=== PATIENT | female | born 1995 | race Caucasian/White ===

== ENCOUNTER 2024-08-24 14:41 | Outpatient (REF) | payer OTHER, SELFPAY ==
[2024-08-24 16:24] LABS: MANUAL DIFF FLAG NO
[2024-08-24 16:59] LABS: Basophils Percent Auto 0.4 % (0-2); Eosinophils Absolute Auto 0.2 X10*3/uL (0.0-0.4); Eosinophils Percent Auto 2.8 % (0-4); Hematocrit 40.7 % (37.0-47.0); Hemoglobin 13.8 g/dl (12.0-16.0); Imm Gran Abs Auto 0.02 X10*3/uL (0.00-0.03); Imm Gran Pct Auto 0.2 % (0.0-0.4); Lymphocytes Absolute Auto 2.5 X10*3/uL (1.2-4.9); Lymphocytes Percent Auto 30.5 % (20-40); Mean Corpuscular HGB Conc 33.9 g/dl (31.0-35.0); Mean Corpuscular Hemoglobin 28.8 pg (27.0-33.0); Mean Platelet Volume 9.9 fL (9.4-12.3); Monocytes Absolute Auto 0.6 X10*3/uL (0.1-1.2); Monocytes Percent Auto 7.3 % (2-11); Neutrophils Absolute Auto 4.9 x10*3/uL (2.0-8.3); Neutrophils Percent Auto 58.8 % (45-73); Platelet Count 233 X10*3/uL (160-400); Red Blood Count 4.79 X10*6/uL (4.20-5.50); White Blood Count 8.3 X10*3/uL (4.8-10.8)
[2024-08-24 17:12] LABS: Appearance Urine Clear; Color Urine Yellow; Glucose Urine UA Negative (Negative); Leukocyte Esterase Urine Trace (Negative); Nitrite Urine Negative (Negative); UMIC TRIGGER UA YES; Urine Blood Negative (Negative); Urine Ketones Negative (Negative); Urine Protein Negative (Neg-Trace)
[2024-08-24 17:22] LABS: Bacteria Urine Trace (None Seen); Hyaline Casts Urine 0-2 /LPF (0-2); RBC Urine 0-2 /HPF (0-2); WBC Urine 0-5 /HPF (0-5)
[2024-08-24 17:36] LABS: Rheumatoid Factor < 13.0 IU/mL (<15.0)
[2024-08-24 17:38] LABS: Erythrocyte Sedimentation Rate 11 MM/HR (0-20)
[2024-08-24 17:43] LABS: Alanine Aminotransferase 37 U/L (0-31); Albumin Level 4.5 g/dL (3.5-5.0); Alkaline Phosphatase 84 U/L (39-117); Anion Gap 15 (12-20); Aspartate Amino Transferase 32 U/L (5-31); Bilirubin Total 0.7 mg/dL (0.0-1.0); Blood Urea Nitrogen 11 mg/dL (9-16); Calcium 9.8 mg/dL (8.4-10.2); Carbon Dioxide 26 mmol/L (22-29); Chloride 103 mmol/L (96-108); Estimated Glomerular Filt Rate > 60; Glucose Random 91 mg/dL (60-115); Potassium 3.6 mmol/L (3.3-5.1); Sodium 140 mmol/L (135-145); Total Protein 7.8 g/dL (6.5-8.0)
[2024-08-24 17:50] LABS: TSH reflex Free T4 5.47 uIU/mL (0.32-4.0)
[2024-08-24 18:16] LABS: Creatinine Urine 118.68 mg/dL; Total Protein Urine Random < 7 mg/dL (<12)
[2024-08-24 18:39] LABS: Free T4 (Free Thyroxine) 1.05 ng/dL (0.71-1.85)
[2024-08-25 08:27] LABS: Hepatitis A Antibody IgM 0.18 Index (0-0.79); ~Hepatitis A Antibody IgM Nonreactive (Nonreactive)
[2024-08-25 08:51] LABS: HBS Num1 7.44 mIU/mL (0-7.99); HBc Num1 0.14 S/CO (0.00-0.79); HBsAGNum1 0.43 S/CO (0.00-0.99); Hepatitis B Core Antibody Nonreactive (Nonreactive); Hepatitis B Surface Antigen Negative (Negative); ~HepC Num1 0.06 S/CO (0.00-0.79); ~Hepatitis B Surface Antibody NONREACTIVE (Nonreactive); ~Hepatitis C Antibody Nonreactive (Nonreactive)
[2024-08-25 11:48] LABS: Thyroglobulin Antibodies <1 IU/mL (< or = 1); Thyroid Peroxidase Antibodies 1 IU/mL (<9)
[2024-08-25 13:33] LABS: Prot Elec - Albumin 5.1 g/dL (3.8-4.8); Prot Elec - Alpha1 0.3 g/dL (0.2-0.3); Prot Elec - Alpha2 0.8 g/dL (0.5-0.9); Prot Elec - Beta 1 0.6 g/dL (0.4-0.6); Prot Elec - Beta 2 0.4 g/dL (0.2-0.5); Prot Elec - Total Protein 8.2 g/dL (6.1-8.1)
[2024-08-25 13:48] LABS: Anti DNA DS Antibody <1 IU/mL; Antibody to SS-A Antigen <1.0 NEG AI (<1.0 NEG); Antibody to SS-B Antigen <1.0 NEG AI (<1.0 NEG); SM/Ribonucleoprotein Ab <1.0 NEG AI (<1.0 NEG); Scleroderma 70 Antibody <1.0 NEG AI (<1.0 NEG); Smith Protein <1.0 NEG AI (<1.0 NEG)
[2024-08-25 14:29] LABS: Complement C3 171 mg/dL (83-193)
[2024-08-25 19:54] LABS: Cardiolipin IgG Ab <2.0 GPL-U/mL; Cardiolipin IgM Ab <2.0 MPL-U/mL
[2024-08-25 20:09] LABS: Anti-Centromere B Antibodies <1.0 NEG AI (<1.0 NEG)
[2024-08-28 15:32] LABS: IgA 210 mg/dL (47-310); IgG 1052 mg/dL (600-1640); IgM 287 mg/dL (50-300)
[2024-08-28 20:14] LABS: Cyclic Citrullinated Peptide <16 UNITS
[2024-08-28 22:53] LABS: Beta-2 Glycoprotein IgA <2.0 U/mL (<20.0); Beta-2 Glycoprotein IgG <2.0 U/mL (<20.0); Beta-2 Glycoprotein IgM <2.0 U/mL (<20.0)
[2024-08-29 08:29] LABS: HLA B27 Negative (Negative)
[2024-08-29 15:28] LABS: DNAds, Crithidia Antibody Negative (Negative)
[2024-08-29 22:28] LABS: PTT (LAC) Screen 29 sec (<=40)
== END 2024-08-24 14:42 | disposition home or self-care (01) ==
LOC: HO.LAB 14:41
PROVIDERS: PCP Nurse Practitioner Family; Visit Provider Student in an Organized Health Care Education/Training Program
DX: M32.9 Systemic lupus erythematosus, unspecified (principal); Z11.59 Encounter for screening for other viral diseases; M25.50 Pain in unspecified joint; E07.9 Disorder of thyroid, unspecified; D68.61 Antiphospholipid syndrome; M45.9 Ankylosing spondylitis of unspecified sites in spine
CPT/HCPCS: 36415; 80053; 81001; 82570; 82784; 84156; 84165; 84439; 84443; 85025; 85597; 85598; 85613; 85652; 85730; 86140; 86146; 86147; 86160; 86200; 86225; 86235; 86255; 86334; 86376; 86431; 86704; 86706; 86709; 86800; 86803; 86812; 87340

== ENCOUNTER 2024-08-24 14:41 | Outpatient (AMB) | payer OTHER, SELFPAY ==
--- NOTE | 2024-08-24 15:17 | MHC.OFFVIS ---
Vital Signs 08/24/24 15:18 Height 5 ft 1 in Weight 161 lb 6.054 oz BMI 30.5 BP 122/68 Blood Pressure Location Lt brachial Position Sitting Pulse 88 Pulse Source Pulse Oximeter Pulse Oximetry (%) 96 Oxygen Delivery Method Room Air Intake Visit Reasons: abnormal lab/joint Pain/CM Intake Note: Patient last seen by Doctor Marielena Dorado on 04/25/24. Presents today for RA follow up and test results. Allergies No Known Allergies Allergy (Verified 06/02/24 13:02) Medication List - Last Reconciled 08/24/24 by Marielena Dorado MD escitalopram oxalate mg PO HPI Comments Details: This is a 29-year-old female who presents for evaluation of positive ART in the context of diffuse pain. She states that her pains are mostly in her knees. This dates back to her high school years. She denies any swelling. States that her knees crack a lot. Her knee pain is generally worse with activity. She also states that about a month ago she had an episode when her right hand became stiff and locked up, she was not able to hold a cup. She states that she did not have any similar episodes affecting her hands. Denies any pain or swelling of her hands. She denies any skin rashes except for itchy rashes behind her ears that have been going on for the last year or so. She denies any unexplained fevers. Denies any unintentional weight loss. She denies any blood or frothy urine. Denies any history of DVT/PE. Patient isn't on a and never attempted . [facility] Medical History (Updated 08/24/24 @ 15:54 by Marielena Dorado MD) Severe recurrent major depression without psychotic features Dysmenorrhea Anxiety OCD (obsessive compulsive disorder) H/O antinuclear antibodies Abnormal thyroid stimulating hormone (TSH) level Fatigue Constipation Family History Brother Mental health disorder Father Hypertension Mother Multiple sclerosis Disorder of connective tissue Diverticular disease Maternal Grandmother Rheumatoid arthritis Fibromyalgia, primary Paternal Grandfather Lupus (systemic lupus erythematosus) Social History Alcohol intake: current Comment: occasionally Patient Tobacco Use Status: Never used Tobacco e-Cigarette/Vaping Use: Former Use Current occupational status: unemployed Current occupation: used to work in a [employer] Review of Systems Const Reports fatigue, Denies fever(s), Reports weakness, Reports weight gain and Denies weight loss ENT Reports tinnitus Card Reports chest pain GI Reports constipation and Reports nausea Reports difficulty voiding Musc Reports arthralgias and Denies joint swelling Skin/Breast Denies alopecia, Reports rash and Reports unusual bruising Neuro Reports weakness Psych Reports abnormal sleep pattern, Reports anxiety and Reports depression Endo Reports fatigue Physical Exam Vital Signs: Last Vital Signs Pulse 88 08/24/24 15:18 BP 122/68 08/24/24 15:18 Pulse Ox 96 08/24/24 15:18 Oxygen Delivery Method Room Air 08/24/24 15:18 BMI result Body Mass Index 30.5 Const General: cooperative, healthy appearing and comfortable Nutritional Appearance: overweight Orientation/consciousness: patient oriented x3 Limitations: no limitations HEENT Head: Yes normocephalic and Yes atraumatic Mouth: moist mucous membranes Resp Effort & Inspection: normal respiratory effort and able to speak in complete sentences Auscultation: clear to auscultation bilaterally Cardio Rate: regular rate Rhythm: regular rhythm Skin Other: Neuro General: patient oriented x3 Extrem Other: No active synovitis No tender joints Right knee crepitus Normal nailfold capillaroscopy Results Reviewed Results Reviewed: Labs 05/2021? ART IFA 1-160 nuclear, few nuclear dots? ART 1-40 nuclear fine speckled? ART 1-80 nuclear, nucleolar Labs 06/2015? ESR normal Assessment & Plan Assessment & Plan (1) H/O antinuclear antibodies: Code(s): Z86.2 - Personal history of diseases of the blood and blood-forming organs and certain disorders involving the immune mechanism Category: Medical Plan: This is a 29-year-old female who presents for evaluation of a positive ART in the context of diffuse pain. She has a strong family history of an autoimmune disease. On exam there are no swollen joints. She has some rashes behind both ears suspicious for psoriasis. I will order comprehensive serology to screen for underlying autoimmune rheumatic disease. Follow-up in 4 weeks Plan I spent 46 minutes reviewing patient's chart, evaluating patient, ordering diagnostic workup, counseling patient and documenting in the chart Orders: Orders Anti Extractable Nuclear Ag Today M32.9 - Systemic lupus erythematosus, unspecified Complement C4 Today M32.9 - Systemic lupus erythematosus, unspecified Erythrocyte Sedimentation Rate Today M32.9 - Systemic lupus erythematosus, unspecified Sjogren's Antibodies Today M32.9 - Systemic lupus erythematosus, unspecified UA w Microscopic Today M32.9 - Systemic lupus erythematosus, unspecified Comprehensive Met. Panel Today M32.9 - Systemic lupus erythematosus, unspecified Hepatitis A,B,C Profile Today Z11.59 - Encounter for screening for other viral diseases Scleroderma 70 Antibody Today M32.9 - Systemic lupus erythematosus, unspecified Anti-Centromere B Antibodies Today M32.9 - Systemic lupus erythematosus, unspecified Cyclic Citrullinated Peptide Today M25.50 - Pain in unspecified joint Thyroid Peroxidase Antibodies Today E07.9 - Disorder of thyroid, unspecified Anti DNA DS Antibody Today M32.9 - Systemic lupus erythematosus, unspecified Complement C3 Today M32.9 - Systemic lupus erythematosus, unspecified C Reactive Protein Today M32.9 - Systemic lupus erythematosus, unspecified DNA Double Stranded-Crithidia Today M32.9 - Systemic lupus erythematosus, unspecified Protein Creatinine Ratio, Ur Today M32.9 - Systemic lupus erythematosus, unspecified Complete Blood Count Auto Diff Today M32.9 - Systemic lupus erythematosus, unspecified Immunofixation Pnl, Serum Today M32.9 - Systemic lupus erythematosus, unspecified Protein Electrophoresis, Serum Today M32.9 - Systemic lupus erythematosus, unspecified HLA B27 Today M45.9 - Ankylosing spondylitis of unspecified sites in spine Rheumatoid Factor Today M25.50 - Pain in unspecified joint Beta-2 Glycoprotein Antibody Today D68.61 - Antiphospholipid syndrome Cardiolipin Antibodies Today D68.61 - Antiphospholipid syndrome Lupus Anticoagulant Panel Today D68.61 - Antiphospholipid syndrome Thyroglobulin Antibodies Today E07.9 - Disorder of thyroid, unspecified TSH reflex Free T4 Today E07.9 - Disorder of thyroid, unspecified Coding Level of Care Code New Pt Level 4 (80225) Diagnoses H/O antinuclear antibodies Z86.2
[2024-08-24 15:18] VITALS: BP 122/68; PULSE 88; O2SAT 96; BMI 30.5
== END 2024-08-24 15:53 | disposition home or self-care (01) ==
PROVIDERS: PCP Nurse Practitioner Family; Visit Provider Student in an Organized Health Care Education/Training Program
DX: Z86.2 Personal history of diseases of the blood and blood-forming organs and certain disorders involving the immune mechanism (principal)
CPT/HCPCS: 99204

== ENCOUNTER 2024-09-21 13:57 | Outpatient (AMB) | payer OTHER, SELFPAY ==
--- NOTE | 2024-09-21 13:59 | A.OFFVIS_ITS ---
Vital Signs 3 09/21/24 14:04 Height 5 ft 1 in Weight 160 lb 14.999 oz BMI 30.4 BP 112/70 Blood Pressure Location Lt brachial Position Sitting Respiration 16 Pulse 90 Pulse Source Pulse Oximeter Pulse Oximetry (%) 98 Oxygen Delivery Method Room Air Intake Visit Reasons: ART +/CM APT Intake Note: Patient presents for ART +. Allergies No Known Allergies Allergy (Verified 09/21/24 14:03) HPI Comments Details: Patient returns for follow-up for her boyfriend after completion of her diagnostic workup Initial history: This is a 29-year-old female who presents for evaluation of positive ART in the context of diffuse pain. She states that her pains are mostly in her knees. This dates back to her high school years. She denies any swelling. States that her knees crack a lot. Her knee pain is generally worse with activity. She also states that about a month ago she had an episode when her right hand became stiff and locked up, she was not able to hold a cup. She states that she did not have any similar episodes affecting her hands. Denies any pain or swelling of her hands. She denies any skin rashes except for itchy rashes behind her ears that have been going on for the last year or so. She denies any unexplained fevers. Denies any unintentional weight loss. She denies any blood or frothy urine. Denies any history of DVT/PE. Patient isn't on a and never attempted . [facility] Medical History (Updated 09/21/24 @ 14:19 by Marielena Dorado MD) Severe recurrent major depression without psychotic features Dysmenorrhea Anxiety OCD (obsessive compulsive disorder) H/O antinuclear antibodies Abnormal thyroid stimulating hormone (TSH) level Fatigue Constipation Family History Brother Mental health disorder Father Hypertension Mother Multiple sclerosis Disorder of connective tissue Diverticular disease Maternal Grandmother Rheumatoid arthritis Fibromyalgia, primary Paternal Grandfather Lupus (systemic lupus erythematosus) Social History Alcohol intake: current Comment: occasionally Patient Tobacco Use Status: Never used Tobacco e-Cigarette/Vaping Use: Former Use Current occupational status: unemployed Current occupation: used to work in a [employer] Review of Systems Const Reports fatigue, Denies fever(s), Reports weakness, Reports weight gain and Denies weight loss ENT Reports tinnitus Card Reports chest pain GI Reports constipation and Reports nausea Reports difficulty voiding Musc Reports arthralgias and Denies joint swelling Skin/Breast Denies alopecia, Reports rash and Reports unusual bruising Neuro Reports weakness Psych Reports abnormal sleep pattern, Reports anxiety and Reports depression Endo Reports fatigue Physical Exam Vital Signs: Last Vital Signs Pulse 90 09/21/24 14:04 Resp 16 09/21/24 14:04 BP 112/70 09/21/24 14:04 Pulse Ox 98 09/21/24 14:04 Oxygen Delivery Method Room Air 09/21/24 14:04 BMI result Body Mass Index 30.4 Const General: cooperative, healthy appearing and comfortable Nutritional Appearance: overweight Orientation/consciousness: patient oriented x3 Limitations: no limitations HEENT Head: Yes normocephalic and Yes atraumatic Mouth: moist mucous membranes Resp Effort & Inspection: normal respiratory effort and able to speak in complete sentences Auscultation: clear to auscultation bilaterally Cardio Rate: regular rate Rhythm: regular rhythm Skin Other: Neuro General: patient oriented x3 Extrem Other: No active synovitis No tender joints Right knee crepitus Normal nailfold capillaroscopy Results Reviewed Results Reviewed: Labs 05/2021? ART IFA 1-160 nuclear, few nuclear dots? ART 1-40 nuclear fine speckled? ART 1-80 nuclear, nucleolar Labs 06/2015? ESR normal Laboratory Tests 08/24/24 16:18 AST 32 H ALT 37 H Assessment & Plan Assessment & Plan (1) H/O antinuclear antibodies: Code(s): Z86.2 - Personal history of diseases of the blood and blood-forming organs and certain disorders involving the immune mechanism Category: Medical Plan: This is a 29-year-old female who presents for evaluation of a positive ART in the context of diffuse pain and fatigue. She has a strong family history of an autoimmune disease. On exam there are no swollen joints. She has some rashes behind both ears suspicious for psoriasis. Comprehensive serology for underlying autoimmune rheumatic disease is negative. At this time I do not see any evidence of an underlying autoimmune rheumatic disease. Discussed with patient that about 20% of the population can have a positive ART with no underlying autoimmune rheumatic disease. The significance of her positive ART is unclear (2) Abnormal thyroid stimulating hormone (TSH) level: Code(s): R79.89 - Other specified abnormal findings of blood chemistry Category: Medical Plan: Elevated TSH levels on multiple occasions, free T4 on most recent set of labs. Per patient her free T4 was abnormal in the past. Patient also complaining of fatigue and 30 lb weight gain over the last year. Referred patient to [facility] for evaluation (3) Transaminitis: Code(s): R74.01 - Elevation of levels of liver transaminase levels Category: Medical Plan: Negative hepatitis serology. Patient denies alcohol consumption. Follow-up with PCP Plan I spent 22 minutes reviewing patient's chart, evaluating patient, placing orders, counseling patient and documenting in the chart Orders: Referrals 2 Endocrinology Referral R79.89 - Other specified abnormal findings of blood chemistry Coding Level of Care Code Est Pt Level 4 (79087) Diagnoses H/O antinuclear antibodies Z86.2 Abnormal thyroid stimulating hormone (TSH) level R79.89 Transaminitis R74.01
[2024-09-21 14:04] VITALS: BP 112/70; PULSE 90; RESP 16; O2SAT 98; BMI 30.4
== END 2024-09-21 14:16 | disposition home or self-care (01) ==
PROVIDERS: PCP Nurse Practitioner Family; Visit Provider Student in an Organized Health Care Education/Training Program
DX: Z86.2 Personal history of diseases of the blood and blood-forming organs and certain disorders involving the immune mechanism (principal); R79.89 Other specified abnormal findings of blood chemistry; R74.01 Elevation of levels of liver transaminase levels
CPT/HCPCS: 99214

== ENCOUNTER 2024-11-21 14:43 | Outpatient (AMB) | payer OTHER, SELFPAY ==
--- NOTE | 2024-11-21 14:45 | MHC.OFFVIS ---
Vital Signs 11/21/24 14:46 Height 5 ft 1 in Weight 159 lb 6.307 oz BMI 30.1 BP 106/68 Blood Pressure Location Rt brachial Position Sitting Pulse 77 Pulse Source Pulse Oximeter Intake Visit Reasons: Other specified abnormal findings of blood chem Intake Note: New patient internally referred by Dr. Dorado for abnormal TSH level. Health Science Specialist Required: No Accompanied by: Significant Other Allergies No Known Allergies Allergy (Verified 11/21/24 14:49) Medication List - Last Reconciled 11/21/24 by Royce Glez MD escitalopram oxalate mg PO hydroxyzine HCl 25 mg PO BID PRN HPI Comments Details: 29 YO female who is seen in consultation at the request of his PCP for Hyothyroidism. First diagnosed with Hypothyroidism 12/2023 with labs revealing 5.47. With positive anti-peroxidase antibodies Not Currently using thyroid hormone. Denies + fatigue, +weight gain, +cold intolerance,- dry skin, -hair loss, +constipation. There is hx of hyperlipidemia . Denies obstructive sx of goiter . Denies consuming any kelp or seaweed. Denies taking amiodarone. Denies current or desiring to become in near future. Menses: Abnl menses every 3-4 mos last menses 09/2024 Biotin: No No family hx of thyroid problems but problem with autoimmunity Labs: As above [facility] Medical History (Updated 09/21/24 @ 14:19 by Marielena Dorado MD) Severe recurrent major depression without psychotic features Dysmenorrhea Anxiety OCD (obsessive compulsive disorder) H/O antinuclear antibodies Abnormal thyroid stimulating hormone (TSH) level Fatigue Constipation Surgical History No pertinent past surgical history Family History Brother Mental health disorder Father Hypertension Mother Multiple sclerosis Disorder of connective tissue Diverticular disease Maternal Grandmother Rheumatoid arthritis Fibromyalgia, primary Paternal Grandfather Lupus (systemic lupus erythematosus) Social History Alcohol intake: current Comment: occasionally Patient Tobacco Use Status: Never used Tobacco e-Cigarette/Vaping Use: Former Use Current occupational status: unemployed Current occupation: used to work in a [employer] Physical Exam Vital Signs: Last Vital Signs Pulse 77 11/21/24 14:46 BP 106/68 11/21/24 14:46 BMI result Body Mass Index 30.1 HEENT reveals absence of lid lag , stare or proptosis or eyebrow loss. Thyroid gland measure gms . No nodules or tenderness palpated. There is no cervical adenopathy palpated. Lungs CTA. Heart S1, S2 Reg R/R -M/R/G. Abdominal exam benign. Skin exam reveals absence of dryness or thyroid dermopathy or vitiligo. Nail exam reveals absence of thyroid acropachy or oncholysis. Neurologic exam reveals 2+ reflexes . Muscle Strength is 5/5 proximally. There are no tremors in upper extremities. Assessment & Plan Assessment & Plan (1) Abnormal thyroid stimulating hormone (TSH) level: Code(s): R79.89 - Other specified abnormal findings of blood chemistry Category: Medical Plan: This is a 29-year-old white female with a history of early thyroid failure . She has negative anti-peroxidase antibodies but could have antibody negative Reema's thyroiditis versus hypothyroid phase of thyroiditis. Plan is to talk to the patient about starting a low dose trial of levothyroxine namely 75 mcg. Will recheck TSH and free T4 in 6 weeks time. We will also check test in the next couple of days considering lack of menses Orders: Orders Free T4 (Free Thyroxine) 6 Weeks R7. - Other specified abnormal findings of blood chemistry Thyroid Stimulating Hormone 6 Weeks R7.89 - Other specified abnormal findings of blood chemistry HCG Quantitative 1 Day R7. - Other specified abnormal findings of blood chemistry Medications: New levothyroxine (Synthroid) 75 mcg PO DAILY 30 tabs 5RF Coding Level of Care Code New Pt Level 4 (58851) Diagnoses Abnormal thyroid stimulating hormone (TSH) level R7.
[2024-11-21 14:46] VITALS: BP 106/68; PULSE 77; BMI 30.1
--- OUTSIDE RECORDS SUMMARY | 2024-11-21 16:48 | XMS_ITS | Clinical Summary ---
Author Organization [facility] Address [address] [place], [place] [id number] Phone Care Team Providers Care Blade Sharpener Name Role Phone Vivian Zarco MD Primary Care Provider [phone] Immunizations Name Administration Dates Next Due DTP 1996,1996,1996 DTP / HiB 07/05/1997 DTaP 5 02/14/2001 HPV, Quadrivalent 04/12/2014,08/05/2011,06/25/20 10 Hep B, ped/adol 01/16/1997,1996,1996 Hib (HbOC) 1996,1996,1996 IPV 02/14/2001 Influenza, injectable, triva lent, preservative free 08/05/2011 MMR 02/14/2001,07/05/1997 Meningococcal Conj (Menactra) MCV4P 04/12/2014,0 12/20/2008 OPV 07/05/1997,1996,1996 Tdap 11/07/2007 Varicella 11/07/2007,04/05/1998 Social History Tobacco Use Types Packs/Day Years Used Date Smoking Tobacco: Never Comments:Never Smoker Comments Unknown Sex and Gender Information Value Date Recorded Sex Assigned at Not on file Legal Sex Female 4:06 PM EST Gender Identity Not on file Sexual Orientation Not on file Last Filed Vital Signs Vital Sign Reading Time Taken Comments Blood Pressure 100/68 06/07/2015 3:56 PM EDT Pulse - - Temperature 36.3 ??C (97.3 ??F) 10/30/2011 11:[address] Respiratory Rate - - Oxygen Saturation - - Inhaled Oxygen Concentration - - Weight 46.7 kg (103 lb) 06/07/2015 3:54 PM EDT Height 156.2 cm (5' 1.5 ) 06/07/2015 3:54 PM EDT Body Mass Index 19.15 06/07/2015 3:54 PM EDT Plan of Treatment Health Maintenance Due Date Last Done Comments Consider Men B Vaccine (1 of 2 - Bexsero 2-dose series) 2012 DTaP,Tdap,and Td Vaccines (7 - Td or Tdap) 11/07/2017 11/07/2007, 02/14/2001, 07/05/1997, Additional history exists Influenza Vaccines (#1) 2024 08/05/2011 COVID-19 Vaccine ( season) 2024 Hepatitis B Vaccines Completed 01/16/1997, 1996, 1996 HIB Vaccines Completed 07/05/1997, 06/1997, 1996, Additional history exists IPV Vaccines Completed 02/14/2001, 01/1997, 1996, Additional history exists MMR Vaccines Completed 02/14/2001, 07/05/1997 Varicella Vaccines Completed 11/07/2007, 04/05/1998 HPV Vaccines Completed 04/12/2014, 03/2011, 06/25/2010 Meningococcal Vaccine Completed 04/12/2014, 009 Hepatitis A Vaccines Aged Out No long er eligible based on patient's age to complete this topic Men B Vaccine Aged Out No longer elig ible based on patient's age to complete this topic Pneumococcal Vaccine Aged Out No long er eligible based on patient's age to complete this topic Care Teams Blade Sharpener Relationship Specialty Start Date End Date Vivian Zarco MD [address] [place] [address] [address] [place] [address] PCP - General 12/21/16
--- OUTSIDE RECORDS SUMMARY | 2024-11-21 16:48 | XMS_ITS | Continuity of Care Document ---
Author Organization [facility] Address [address] [address] [place] [address] Phone Care Team Providers Care Paper Wrapping Machine Operator Name Role Phone Erik Lazar MD Unavailable Unavailable Allergies, Adverse Reactions, Alerts Substance Reaction Status Criticality No Known Allergies Active No Inform ation Medications Medication Instructions Dosage Effective Dates (start - stop) Status Comments clindamycin 300 mg capsule take 1 capsule by oral route every 6 hours 300 MG - Active hydrocodone 5 mg-acetaminophen 325 mg tablet take 1 tablet by oral route every 6 hours as needed for pain 1.00 tablet - Active Problems Condition Type Effective Dates (start - stop) Clini anamaria Status Comments No Known Problems Procedures Procedure Date [facility] Directive Yes / No Effective Date File Name No Information Encounters Encounter Description Practice Location Reason(s) For Visit Diagnoses Date Provider Providers Copied on Encounter Offic/outpt E m [facility], [address] [address], [place], [place], [id number], tel:[phone] [facility] Tooth Pain (chief complaint)U rinary frequency (chief complaint) Tooth painIncreased urinary frequencyFatigue [address] [place], [place], [id number] , [place]. tel:[phone] Family History Family Member Type Diagnosis Age At Onset No Information Payers Payer name Insurance type Covered libertarian ID Authoriza tion(s) No Information Social History Type Description Quantity Date Captured Comments Alcohol Use Details Unknown Caffeine Use Details Unknown Tobacco Use Status Never smoked tobacco 2014 Smoking Status Never smoker Non-Smoking Tobacco Use Details : No Details Available : No Details Available Sex Female Vital Signs Date / Time: Height Weight BMI Pulse Rate Blood Pressure Temperature Respiratory Rate Body Surface Area Head Circumference Head Circ. Percentile Wt./Alonzo. Percentile BMI percentile Pulse Ox Inhaled Ox 2:28 PM 67.50 in 69.218 kg (152.60 lbs) 23.5 5 kg/m eter (2) 89 /min 120/78 mm[Hg] 98.20 F 16 /min 1.82 meter(2) 98 % Chief Complaint And Reason For Visit From encounter dated '12/14/2014 14:30'. Tooth Pain (chief complaint). Description: The symptoms began 1 week ago. The symptoms occur constantly. Relieving factors include ibuprofen; but pain is not as well controlled.. The pain is dull andachy, does not radiate; no fever or chills. It is located in the left lower molar. Hx of a cracked molar that has not been treated. Urinary frequency (chief complaint). Description: The onset was 4 weeks ago. Patient reports no pain. It occurs daily. The problem is unchanged. Patient reports no leakage. The patient denies receiving treatment. The patient does not report any of the following neurological symptoms: diabetes. Associated symptoms include nocturia (3 times per night). Pertinent negatives include constipation, fever, urinary hesitancy, incomplete emptying and pain. Additional information: Has also had low grade fatigue and mild intermittent dizziness.. Reason For Referral Reason For Referral No Information Plan Of Treatment Date Type Action Status Future Order: Lab Order CBC W/Di fferential ([id number]), Sent on: Sent Future Order: Lab Order Hemoglob in A1C ([id number]), Sent on: Sent Future Order: Lab Order MICROALB UR TVC ([id number]), Sent on: Sent Future Order: Lab Order TSH ([id number]), S ent on: Sent Future Order: Lab Order T4, Free ([id number]), Sent on: Sent Future Order: Lab Order T3, Free ([id number]), Sent on: Sent History Of Present Illness Encounter Date Complaint History Of Prese nt Illness Urinary frequency The onset was 4 weeks ago. Patient reports no pain. It occurs daily. The problem is unchanged. Patient reports no leakage. The patient denies receiving treatment. The patient does not report any of the following neurological symptoms: diabetes. Associated symptoms include nocturia (3 times per night). Pertinent negatives include constipation, fever, urinary hesitancy, incomplete emptying and pain. Additional information: Has also had low grade fatigue and mild intermittent dizziness.. Tooth Pain The symptoms beg an 1 week ago. The symptoms occur constantly. Relieving factors include ibuprofen; but pain is not as well controlled.. The pain is dull and achy, does not radiate; no fever or chills. It is located in the left lower molar. Hx of a cracked molar that has not been treated. Functional Status Date Functional Assessmen t No Information Instructions Date Instruction Additional Infor mation I have prescribed yo u pain medication only to be used for severe pain. Use ibuprofen to keep the inflammation down. Since you do not have dental coverage for 2 weeks, I have also prescribed an antibiotic to be used if there are signs of worsening infection as we discussed. However, if your symptoms acutely worsen, go to the ED. Related to Tooth pain Assessments Type Assessment Date assessment Tooth pain assessment Increased urinary frequency assessment Fatigue Patient Care Teams Name Effective Dates (start - stop) Status Members No Information
--- OUTSIDE RECORDS SUMMARY | 2024-11-21 16:48 | XMS_ITS | Encounter Summary ---
Author Organization [facility] Address [address] [place] [address] Phone Care Team Providers Care Contact Center Team Lead Name Role Phone Vivian Zarco MD Primary Care Provider [phone] Encounter Details Date Type Department Care Team (Late st Contact Info) Description 07/01/2015 Orders Only [facility], [address] [place] [address] Social History Tobacco Use Types Packs/Day Years Used Date Smoking Tobacco: Never Comments:Never Smoker Comments Unknown Sex and Gender Information Value Date Recorded Sex Assigned at Not on file Legal Sex Female 4:06 PM EST Gender Identity Not on file Sexual Orientation Not on file documented as of this encounter Plan of Treatment Not on file documented as of this encounter Visit Diagnoses Not on filedocumented in this encounter Care Teams Contact Center Team Lead Relationship Specialty Start Date End Date Vivian Zarco MD [address] [place] [address] [address] [place] [address] PCP - General 12/21/16 documented as of this encounter
== END 2024-11-21 15:40 | disposition home or self-care (01) ==
PROVIDERS: PCP Nurse Practitioner Family; Visit Provider Internal Medicine Endocrinology, Diabetes & Metabolism
DX: R79.89 Other specified abnormal findings of blood chemistry (principal)
CPT/HCPCS: 99204

== ENCOUNTER 2025-01-11 12:52 | Outpatient (REF) | payer MEDICAID, SELFPAY ==
[2025-01-11 14:39] LABS: Free T4 (Free Thyroxine) 1.24 ng/dL (0.71-1.85); Thyroid Stimulating Hormone 0.02 uIU/mL (0.32-4.0)
--- OUTSIDE RECORDS SUMMARY | 2025-01-11 16:11 | XMS_ITS | Clinical Summary ---
Author Organization [facility] Address [address] [place], [place] [address] Phone Care Team Providers Care Lead Project Engineer Name Role Phone Vivian Zarco MD Primary Care Provider [phone] Immunizations Immunization Administration Dates Next Due DTP 1996,1996,1996 DTP [...] Health Maintenance Due Date Last Done Comments DTaP,Tdap,and Td Vaccines (7 - Td or [...] age to complete this topic Care Teams Lead Project Engineer Relationship Specialty Start Date End Date Vivian Zarco MD [address] [place] [address] [address] [place] [address] PCP - General 12/21/16
--- OUTSIDE RECORDS SUMMARY | 2025-01-11 16:11 | XMS_ITS | Continuity of Care Document ---
Author Organization [employer] [facility] Address [address] [address] [place] [address] Phone Care Team Providers Care Porcelain Finisher Name Role Phone Erik Lazar MD Unavailable [...] Problems Procedures Procedure Date Offic[facility]pt E [facility] Advance Directives Directive Yes / No Effective Date File Name No Information Encounters Encounter Description Practice Location Reason(s) For Visit Diagnoses Date Provider Providers Copied on Encounter Offic/outpt E m [facility] [employer] [facility], [address] [address], [employer] [employer], [place], [id number], tel:[phone] [facility] Family Medicine Tooth Pain (chief complaint)U rinary frequency (chief complaint) Tooth painIncreased urinary frequencyFatigue 3-201 [address]. [address] [place], [place], [id number] , [place]. tel:[phone] Family History Family Member Type Diagnosis Age At Onset No Information Payers Payer name Insurance type Covered democrat ID Authoriza tion(s) No Information Social History [...] Future Order: Lab Order CBC W/Di fferential ([id number]), Sent on: Sent Future Order: Lab Order Hemoglob in A1C ([id number]), Sent on: Sent Future Order: Lab Order MICROALB UR TVC ([id number]), Sent on: Sent Future Order: Lab Order TSH ([id number]), S ent on: Sent Future Order: Lab Order T4, Free ([id number]), Sent on: Sent Future Order: Lab Order T3, Free ([id number]), Sent on: Sent History Of Present Illness Encounter Date Complaint History Of Prese nt Illness Tooth Pain The symptoms beg an 1 week ago. The symptoms occur constantly. Relieving factors include ibuprofen; but pain is not as well controlled.. The pain is dull and achy, does not radiate; no fever or chills. It is located in the left lower molar. Hx of a cracked molar that has not been treated. Urinary frequency The onset was 4 weeks [...] low grade fatigue and mild intermittent dizziness.. Functional Status Date Functional Assessmen t No [...]
--- OUTSIDE RECORDS SUMMARY | 2025-01-11 16:11 | XMS_ITS | Encounter Summary ---
Author Organization [facility] Address [address] [place] [address] Phone Care Team Providers Care Grating Machine Operator Name Role Phone Vivian Zarco MD Primary Care Provider [phone] Encounter Details Date Type Department Care Team (Late st Contact Info) Description 07/01/2015 Orders Only [facility], [address] [place] [address] Social History Tobacco Use Types Packs/Day Years [...] on filedocumented in this encounter Care Teams Grating Machine Operator Relationship Specialty Start Date End Date Vivian Zarco MD [address] [place] [address] [address] [place] [address] PCP - General 12/21/16 documented as of this encounter
== END 2025-01-11 12:53 | disposition home or self-care (01) ==
LOC: HO.10HDL 12:52
PROVIDERS: Visit Provider Internal Medicine Endocrinology, Diabetes & Metabolism
DX: R79.89 Other specified abnormal findings of blood chemistry (principal)
CPT/HCPCS: 36415; 84439; 84443

== ENCOUNTER 2025-02-14 13:43 | Outpatient (REF) | payer MEDICAID, SELFPAY ==
[2025-02-14 15:56] LABS: Free T4 (Free Thyroxine) 1.13 ng/dL (0.71-1.85); Thyroid Stimulating Hormone 0.17 uIU/mL (0.32-4.0)
--- OUTSIDE RECORDS SUMMARY | 2025-02-14 16:23 | XMS_ITS | Encounter Summary ---
Author Organization [facility] Address [address] [place] [address] Phone Care Team Providers Care Chemistry Physics Teacher Name Role Phone Vivian Zarco MD Primary Care Provider [phone] Encounter Details Date Type Department Care Team (Late st Contact Info) Description 07/01/2015 Orders Only [facility], [address] [place] [address] Social History Tobacco Use Types Packs/Day Years [...] on filedocumented in this encounter Care Teams Chemistry Physics Teacher Relationship Specialty Start Date End Date Vivian Zarco MD [address] [place] [address] [address] [place] [address] PCP - General 12/21/16 documented as of this encounter
--- OUTSIDE RECORDS SUMMARY | 2025-02-14 16:24 | XMS_ITS | Continuity of Care Document ---
Author Organization [employer] [facility] Address [address] [address] [place] [address] Phone Care Team Providers Care Corporate Development Intern Name Role Phone Erik Lazar MD Unavailable [...] Problems Procedures Procedure Date [facility] Advance Directives Directive Yes / No Effective Date File Name No Information Encounters Encounter Description Practice Location Reason(s) For Visit Diagnoses Date Provider Providers Copied on Encounter Offic/outpt E m [employer] [facility], [address] [address], [place], [place], [id number], tel:[phone] [facility] Family Medicine Tooth Pain (chief complaint)U rinary frequency (chief complaint) Tooth painIncreased urinary frequencyFatigue 3201 [address]. [address] [place], [place], [id number] , [place]. tel:[phone] Family History Family Member Type Diagnosis Age At Onset No Information Payers Payer name Insurance type Covered green party ID Authoriza tion(s) No Information Social History [...] Future Order: Lab Order CBC W/Di fferential ([id number]), Sent on: Sent Future Order: Lab Order Hemoglob in A1C ([id number]), Sent on: Sent Future Order: Lab Order MICROALB UR TVC ([id number]), Sent on: Sent Future Order: Lab Order TSH ([id number]), S ent on: Sent Future Order: Lab Order T4, Free ([id number]), Sent on: Sent Future Order: Lab [...]
--- OUTSIDE RECORDS SUMMARY | 2025-02-14 16:24 | XMS_ITS | Clinical Summary ---
Author Organization [facility] Address [address] [place] [address] [place] [address] Phone Care Team Providers Care District Fire Chief Name Role Phone Cole Paiz NP Primary Care Provider [phone] Allergies No known active allergies Medications Medication Sig Dispensed Refills Start Date End Date Status escitalopram oxalate (LEXAPRO) 10 MG tablet Take 1 tablet by mouth every morning. 11/09/2024 Active escitalopram oxalate (LEXAPRO) 20 MG tablet Take 1 tablet by mouth every morning. 12/28/2024 Active levothyroxine (SYNTHROID, LEVOTHROID) 50 MCG tablet Take 1 tablet by mouth every morning. 01/11/2025 Active levothyroxine (SYNTHROID, LEVOTHROID) 75 MCG tablet Take 1 tablet by mouth every morning. 11/21/2024 Active Active Problems No known active problems Encounters Date Type Department Care Team Description 01/29/2025 11:40 AM EDT Office Visit [facility] at [address] [place] [address] Jerrod Hernández CNP Influenza B (Primary Dx); Sore throat; Fever, unspecified 01/20/2025 2:24 PM EDT - 01/20/2025 11:59 PM EDT Hospital Encounter [facility], X-Ray - [address] [place] [address] Nancy Banda NP Discharge Disposition: Home or Self Care 01/20/2025 2:10 PM EDT Office Visit [facility] at [address] [place] [address] Nancy Banda NP Left leg pain (Primary Dx) from Last 3 Months Social History Tobacco Use Types Packs/Day Years Used Date Smoking Tobacco: Never Assessed Education Answer Date Recorded Are you interested in more education? Not on simon e 01/20/2025 Are you concerned about learning? Not on file 01/20/2025 No 01/20/2025 No 01/20/2025 Digital Access Answer Date Recorded No 01/20/2025 No 01/20/2025 Reliable internet access at home? Not on file 01/20/2025 Device with a working camera? Not on file Sex and Gender Information Value Date Recorded Sex Assigned at Not on file Gender Identity Not on file Sexual Orientation Not on file Last Filed Vital Signs Vital Sign Reading Time Taken Comments Blood Pressure 116/74 01/29/2025 12:18 PM EDT Pulse 81 01/29/2025 12:18 PM EDT Temperature 37.7 ??C (99.9 ??F) 01/29/2025 12:18 PM E DT Respiratory Rate 16 01/29/2025 12:18 PM EDT Oxygen Saturation 98% 01/29/2025 12:18 PM EDT Inhaled Oxygen Concentration - - Weight - - Height - - Body Mass Index - - Plan of Treatment Health Maintenance Due Date Last Done Comments TSH LEVEL 1996 DEPRESSION SCREENING 2008 SMOKING Hx and SMOKELESS TOB ACCO SCREENING 2009 HEPATITIS C SCREENING 2014 HIV ONE-TIME SCREENING (18-6 5 YEARS) 2014 PAP SMEAR 2017 Adult Td,Tdap Booster 11/07/2017 11/07/2007 INFLUENZA VACCINE (#1) 2024 COVID-19 VACCINE ( - 2023-2 5 season) 2024 HEPATITIS A VACCINES Aged Out No long er eligible based on patient's age to complete this topic HIB VACCINES Aged Out No longer eligi ble based on patient's age to complete this topic MENINGOCOCCAL VACCINES (ACWY) Aged Out No longer eligible based on patient's age to complete this topic PNEUMOCOCCAL VACCINES (0-49 years) Aged Out No longer eligible based on patient's age to complete this topic Medical Devices Not on file Procedures Procedure Name Priority Date/Time Associated Diagnosis Comments POCT COVID-19 RT-PCR/INFLUENZA A & B/RSV CEPHEID Routine 01/29/2025 12:20 PM EDT Sore throat POCT STREP A PCR CEPHEID Routine 01/29/2025 12:19 PM EDT Sore throat XR TIBIA FIBULA 2 VIEWS (LEFT) Urgent/patient waiting 01/20/2025 2:35 PM EDT Left leg pain from Last 3 Months Results * (ABNORMAL) POCT COVID-19 RT-PCR/Influenza A & B/RSV (Cepheid) (01/29/2025 12:20 PM EDT) Source Nasal swab SARS-CoV-2 (COVID-19) NEGATIVE-Va lid Control NEGATIVE-Va lid Control Influenza A Negative, Valid Control Negative, Valid Control Influenza B Positive, Valid Control(A) Negative, Valid Control RSV Negative, Valid Control Negative, Valid Control Other 01/29/2025 12:2 0 PM EDT Jerrod Hernández CNP POINT OF CARE TEST ORDERABLES * POCT Strep A PCR (Cepheid) (01/29/2025 12:19 PM EDT) Strep A Negative, Valid Control Negative, Valid Control Other 01/29/2025 12:1 9 PM EDT Jerrod Hernández [facility] POINT OF CARE TEST ORDERABLES * XR Tibia Fibula 2 Views (Left) (01/20/2025 2:35 PM EDT) Anatomical Region Laterality Modality Leg Left Computed Radiogr aphy 01/20/2025 3:22 PM EDT Impressions 01/20/2025 3:23 PM EDT No fracture or dislocation. Narrative 01/20/2025 3:23 PM EDT XR TIBIA FIBULA 2 VIEWS (LEFT) Referring clinician's provided indication for this examination in [facility]: Trauma COMPARISON: None. FINDINGS: No fracture. Normal alignment. No lytic or blastic lesion. Visualized portion of the knee and ankle appear normal. Procedure Note Dedrick Dallas MD - 01/20/2025 XR TIBIA FIBULA 2 VIEWS (LEFT) Referring clinician's provided indication for this examination in [facility]:Trauma COMPARISON: None. FINDINGS: No fracture. Normal alignment. No lytic or blastic lesion. Visualizedportion of the knee and ankle appear normal. IMPRESSION: No fracture or dislocation. Nancy Banda MACHINE HAMPER MAKER IMG XR LOWER EXTRE MITY from Last 3 Months Care Teams District Fire Chief Relationship Specialty Start Date End Date Cole Paiz NP [address] [place] [address] [place] [phone] PCP - General Nurse Practitioner 01/29/25 Additional Source Comments The information contained in this document represents components of the legal health record. It is not the complete legal health record.[facility]
--- OUTSIDE RECORDS SUMMARY | 2025-02-14 16:24 | XMS_ITS | Clinical Summary ---
Author Organization [facility] Address [address] [place], [place] [address] Phone Care Team Providers Care Fruit Inspector Name Role Phone Vivian Zarco MD Primary Care Provider [phone] Immunizations Immunization Administration Dates Next Due DTP [...] age to complete this topic Care Teams Fruit Inspector Relationship Specialty Start Date End Date Vivian Zarco MD [address] [place] [address] [address] [place] [address] PCP - General 12/21/16
== END 2025-02-14 13:44 | disposition home or self-care (01) ==
LOC: HO.LAB 13:43
PROVIDERS: PCP Nurse Practitioner Family; Visit Provider Internal Medicine Endocrinology, Diabetes & Metabolism
DX: R79.89 Other specified abnormal findings of blood chemistry (principal)
CPT/HCPCS: 36415; 84439; 84443

== ENCOUNTER 2025-02-20 14:22 | Outpatient (AMB) | payer MEDICAID, SELFPAY ==
--- NOTE | 2025-02-20 14:29 | A.OFFVIS_ITS ---
Vital Signs 02/20/25 14:30 Height 5 ft 1 in Weight 158 lb 15.253 oz BMI 30.0 BP 104/68 Blood Pressure Location Rt brachial Position Sitting Pulse 70 Pulse Source Pulse Oximeter Pulse Oximetry (%) 98 Oxygen Delivery Method Room Air Intake Visit Reasons: Abnormal TSH Intake Note: Patient present today for Abnormal TSH follow up. Supervisor Special Education Required: No Accompanied by: Self / Same As Patient Allergies No Known Allergies Allergy (Verified 02/20/25 14:31) Medication List - Last Reconciled 02/20/25 by Royce Glez MD escitalopram oxalate mg PO hydroxyzine HCl 25 mg PO BID PRN levothyroxine 50 mcg PO DAILY HPI Comments Details: 29 YO female who is seen in consultation at the request of his PCP for Hyothyroidism. First diagnosed with Hypothyroidism 12/2023 with labs revealing 5.47. With positive anti-peroxidase antibodies Not Currently using thyroid hormone. Denies + fatigue, +weight gain, +cold intolerance,- dry skin, -hair loss, +constipation. There is hx of hyperlipidemia . Denies obstructive sx of goiter . Denies consuming any kelp or seaweed. Denies taking amiodarone. Denies current or desiring to become in near future. Menses: Abnl menses every 3-4 mos last menses 09/2024 Biotin: No No family hx of thyroid problems but problem with autoimmunity Labs: As above Was on 50 mcg levothyroxine would suppressed TSH. TPO antibodies were negative The patient is a 29-year-old female presenting with concerns regarding her thyroid function. She was on 50 mcg of levothyroxine, taking it at 10:00 AM daily but discontinued it following her February 14 blood test. On February 15, she officially stopped taking levothyroxine as her TSH levels were low, suggesting she might not require the medication anymore due to resolving phases of thyroiditis. Her thyroid gland might have gone through phases of being overactive and underactive, followed by recovery. The possibility of symptoms due to a vitamin deficiency is also contemplated, which she plans to address during an upcoming appointment with her primary care provider. [facility] Medical History (Updated 09/21/24 @ 14:19 by Marielena Dorado MD) Severe recurrent major depression without psychotic features Dysmenorrhea Anxiety OCD (obsessive compulsive disorder) H/O antinuclear antibodies Abnormal thyroid stimulating hormone (TSH) level Fatigue Constipation Surgical History No pertinent past surgical history Family History Brother Mental health disorder Father Hypertension Mother Multiple sclerosis Disorder of connective tissue Diverticular disease Maternal Grandmother Rheumatoid arthritis Fibromyalgia, primary Paternal Grandfather Lupus (systemic lupus erythematosus) Social History Alcohol intake: current Comment: occasionally Patient Tobacco Use Status: Never used Tobacco e-Cigarette/Vaping Use: Former Use Current occupational status: unemployed Current occupation: used to work in a warehouse Physical Exam HEENT reveals absence of lid lag , stare or proptosis or eyebrow loss. Thyroid gland measure gms . No nodules or tenderness palpated. There is no cervical adenopathy palpated. Lungs CTA. Heart S1, S2 Reg R/R -M/R/G. Abdominal exam benign. Skin exam reveals absence of dryness or thyroid dermopathy or vitiligo. Nail exam reveals absence of thyroid acropachy or oncholysis. Neurologic exam reveals 2+ reflexes . Muscle Strength is 5/5 proximally. There are no tremors in upper extremities. Const Other: Thyroid gland is normal size weighs about 15 g . There are no thyroid nodules palpable Assessment & Plan Assessment & Plan (1) Abnormal thyroid stimulating hormone (TSH) level: Code(s): R79.89 - Other specified abnormal findings of blood chemistry Category: Medical Plan: This is a 29-year-old white female with a history of early thyroid failure . She has negative anti-peroxidase antibodies but could have antibody negative Reema's thyroiditis versus hypothyroid phase of thyroiditis. Her dose of levothyroxine has been decreased with continued suppressed TSH Plan is to talk to the patient about continuing to discontinue the levothyroxine and Will recheck TSH and free T4 in 4-6 weeks time to see if patient still requires levothyroxine 1. ?? subacute Thyroiditis I addressed the potential thyroiditis with a phased inflammatory response, deciding on discontinuing levothyroxine due to low TSH levels. We plan to re- evaluate the thyroid function through blood tests in five weeks. Depending on normal or returning symptoms, medication adjustments will be made. I discussed with the patient the likelihood of her thyroiditis resolving and the potential overlap with vitamin deficiencies. We agreed on the cessation of levothyroxine, awaiting the follow-up blood test results in five weeks to determine the thyroid function?s status. This approach will help ensure that, if the thyroid returns to normal function, there would be no need for ongoing medication. - Stop taking levothyroxine as discussed. - Schedule a follow-up blood test in five weeks to check thyroid levels. - Discuss potential vitamin deficiencies with your primary care doctor. - Monitor any symptoms and contact us if needed. - Consider canceling any unnecessary appointments if thyroid levels are normal. . The patient had an opportunity to ask questions regarding treatment plan. The patient expressed understanding and agreement with the above treatment plan. Patient was informed and verbally consented to the use of an ambient scribe for clinic note documentation during this visit. Orders: Orders Free T4 (Free Thyroxine) 5 Weeks R79.89 - Other specified abnormal findings of blood chemistry Thyroid Stimulating Hormone 5 Weeks R79.89 - Other specified abnormal findings of blood chemistry Coding Level of Care Code Est Pt Level 3 (68949) Diagnoses Abnormal thyroid stimulating hormone (TSH) level R79.89
[2025-02-20 14:30] VITALS: BP 104/68; PULSE 70; O2SAT 98
--- OUTSIDE RECORDS SUMMARY | 2025-02-20 17:14 | XMS_ITS | Continuity of Care Document ---
Author Organization [employer] [facility] Address [address] [address] [place] [address] Phone Care Team Providers Care Management Architect Name Role Phone Erik Lazar MD Unavailable [...] Problems Procedures Procedure Date Offic[facility] Advance Directives Directive Yes / No Effective Date File Name No Information Encounters Encounter Description Practice Location Reason(s) For Visit Diagnoses Date Provider Providers Copied on Encounter Offic/outpt E m [employer] [facility] [employer] [facility], [address] [address], [place], [place], [id number], tel:[phone] [facility] Family Medicine Tooth Pain (chief complaint)U rinary frequency (chief complaint) Tooth painIncreased urinary frequencyFatigue 3201 5 [address]i [address]. [address] [place], [place], [id number] , [place]. tel:[phone] Family History Family Member Type Diagnosis Age At Onset No Information Payers Payer name Insurance type Covered alliance party ID Authoriza tion(s) No Information Social [...] Future Order: Lab Order CBC W/Di fferential ([id number]), Sent on: Sent Future Order: Lab Order Hemoglob in A1C ([id number]), Sent on: Sent Future Order: Lab Order MICROALB UR TVC ([id number]), Sent on: Sent Future Order: Lab Order TSH ([id number]), S ent on: Sent Future Order: Lab Order T4, Free ([id number]), Sent on: Sent Future Order: Lab [...]
--- OUTSIDE RECORDS SUMMARY | 2025-02-20 17:14 | XMS_ITS | Clinical Summary ---
Author Organization [facility] Address [address] [place], [place] [address] Phone Care Team Providers Care Netting Weaver Name Role Phone Vivian Zarco MD Primary Care Provider [phone] Immunizations Immunization Administration Dates Next Due DTP [...] age to complete this topic Care Teams Netting Weaver Relationship Specialty Start Date End Date Vivian Zarco MD [address] [place] [address] [address] [place] [address] PCP - General 12/21/16
--- OUTSIDE RECORDS SUMMARY | 2025-02-20 17:14 | XMS_ITS | Encounter Summary ---
Author Organization [facility] Address [address] [place] [address] Phone Care Team Providers Care Stave Block Roller Name Role Phone Vivian Zarco MD Primary Care Provider [phone] Encounter Details Date Type Department Care Team (Late st Contact Info) Description 07/01/2015 Orders Only [facility], [address] [place] [address] Social History Tobacco Use Types Packs/Day Years [...] on filedocumented in this encounter Care Teams Stave Block Roller Relationship Specialty Start Date End Date Vivian Zarco MD [address] [place] [address] [address] [place] [address] PCP - General 12/21/16 documented as of this encounter
--- OUTSIDE RECORDS SUMMARY | 2025-02-20 17:14 | XMS_ITS | Clinical Summary ---
Author Organization [facility] Address [address] [place] [address] [place] [phone] Phone Care Team Providers Care Netbackup Admin Name Role Phone Cole Paiz NP Primary Care Provider [phone] Allergies No known active allergies Medications Medication [...] Description 01/29/2025 11:40 AM EDT Office Visit [facility] at [address] [place] [address] Jerrod Hernández CNP Influenza B (Primary Dx); Sore throat; Fever, unspecified 01/20/2025 2:24 PM EDT - 01/20/2025 11:59 PM EDT Hospital Encounter [facility], X-Ray - [address] [place] [address] Nancy Banda NP Discharge Disposition: Home or Self Care 01/20/2025 2:10 PM EDT Office Visit [facility] at [address] [place] [address] Nancy Banda NP Left leg pain (Primary [...] 01/29/2025 12:1 9 PM EDT Jerrod Hernández [employer] [facility] OF CARE TEST ORDERABLES * XR Tibia Fibula 2 Views (Left) (01/20/2025 2:35 PM EDT) Anatomical Region Laterality Modality Leg Left Computed Radiogr aphy 01/20/2025 3:22 PM EDT Impressions 01/20/2025 3:23 PM EDT No fracture or dislocation. Narrative 01/20/2025 3:23 PM EDT XR TIBIA FIBULA 2 VIEWS (LEFT) Referring clinician's provided indication for this examination in [facility]: Trauma COMPARISON: None. FINDINGS: No fracture. Normal alignment. No lytic or blastic lesion. Visualized portion of the knee and ankle appear normal. Procedure Note Dedrick Dallas MD - 01/20/2025 XR TIBIA FIBULA 2 VIEWS (LEFT) Referring clinician's provided indication for this examination in [facility]:Trauma COMPARISON: None. FINDINGS: No fracture. Normal alignment. No lytic or blastic lesion. Visualizedportion of the knee and ankle appear normal. IMPRESSION: No fracture or dislocation. Nancy Banda WHEEL M[employer] OPERATOR IMG XR LOWER EXTRE MITY from Last 3 Months Care Teams Netbackup Admin Relationship Specialty Start Date End Date Cole Paiz NP [address] [place] [address] [place] [id number] PCP - General Nurse Practitioner 01/29/25 Additional Source Comments The information contained in this document represents components of the legal health record. It is not the complete legal health record.[facility]
== END 2025-02-20 14:40 | disposition home or self-care (01) ==
LOC: HO.ENCR 14:23
PROVIDERS: PCP Nurse Practitioner Family; Visit Provider Internal Medicine Endocrinology, Diabetes & Metabolism
DX: R79.89 Other specified abnormal findings of blood chemistry (principal)
CPT/HCPCS: 99213

== ENCOUNTER → 2025-02-20 14:22 | Outpatient (BNVA) | payer MEDICAID, SELFPAY | PROVIDERS: PCP Nurse Practitioner Family; Visit Provider Internal Medicine Endocrinology, Diabetes & Metabolism | DX: R79.89 Other specified abnormal findings of blood chemistry (principal) | CPT/HCPCS: 99212 ==

== ENCOUNTER 2025-04-03 15:03 | Outpatient (REF) | payer MEDICAID, SELFPAY ==
[2025-04-03 16:07] LABS: Free T4 (Free Thyroxine) 0.96 ng/dL (0.71-1.85); Thyroid Stimulating Hormone 0.74 uIU/mL (0.32-4.0)
--- OUTSIDE RECORDS SUMMARY | 2025-04-03 16:43 | XMS_ITS | Encounter Summary ---
Author Organization [facility] Address [address] [place] [phone] Phone Care Team Providers Care Har[employer] Name Role Phone Vivian Zarco MD Primary Care Provider [phone] Encounter Details Date Type Department Care Team (Late st Contact Info) Description 07/01/2015 Orders Only [facility], [address] [place] [address] Social History Tobacco Use Types Packs/Day Years [...] on filedocumented in this encounter Care Teams Har[employer] Worker [employer] Relationship Specialty Start Date End Date Vivian Zarco MD [address] [place] [address] [address] [place] [address] PCP - General 12/21/16 documented as of this encounter
== END 2025-04-03 15:04 | disposition home or self-care (01) ==
LOC: HO.LAB 15:03
PROVIDERS: PCP Nurse Practitioner Family; Visit Provider Internal Medicine Endocrinology, Diabetes & Metabolism
DX: R79.89 Other specified abnormal findings of blood chemistry (principal)
CPT/HCPCS: 36415; 84439; 84443